=== PATIENT | male | born 1965 | race Caucasian/White ===

== ENCOUNTER 2016-12-20 13:49 | Inpatient (IN) | payer MEDICAID ==
[2016-12-20] VITALS (8 sets, daily range): BP systolic 100–156; BP diastolic 50–97
[~2016-12-20] VITALS: Ht 175.3 cm; Wt 88.3 kg
[~2016-12-20 13:49] MED LIST: AMBIEN5 MG PO; CYMBALTA30 M1 PO; DILAUDID2 MG PO; GEODON20 MG PO; TORADOL10 MG PO; [UNRECOGNIZED DRUG - OTHER] PO
[2016-12-20 14:36] LABS: BASOPHIL % 0.6 % (0-2); PLATELET COUNT 289 x10^3mcL (130-400); RED CELL DISTRIBUTION WIDTH 13.4 % (11.5-14.5)
[2016-12-20 14:41] LABS: CALCIUM 9.2 mg/dL (8.5-10.1); CARBON DIOXIDE 26.1 mmol/L (21-32); CHLORIDE SERUM 104 mmol/L (98-107); GFR1 > 60 mL/min; GLUCOSE SERUM 117 mg/dL (74-106); POTASSIUM SERUM 4.1 mmol/L (3.5-5.1); SODIUM SERUM 140 mmol/L (136-145)
[2016-12-20 14:46] LABS: ALKALINE PHOSPHATASE 56 U/L (46-116); ALT/SGPT 46 U/L (16-63); AST/SGOT 17 U/L (15-37); BILIRUBIN TOTAL 0.26 mg/dL (0.20-1.00); TOTAL PROTEIN, SERUM 7.8 g/dL (6.4-8.2)
[2016-12-20 15:09] LABS: UA SPECIFIC GRAVITY <=1.005 (1.005-1.035); microscopic required? YES; urine erythrocyte TRACE (NEGATIVE)
[2016-12-20 15:19] LABS: AMPHETAMINE QUAL UR NONE DETECTED (NEG <=1000)
[2016-12-20 15:44] LABS: PHOSPHOROUS 3.5 mg/dL (2.5-4.9)
[2016-12-20 15:45] LABS: CHOLESTEROL/HDL RATIO 4.8
[2016-12-20 15:48] LABS: T3 TOTAL 0.99 ng/mL
[2016-12-20 15:56] LABS: FREE T4 1.01 ng/dL (0.76-1.46)
[2016-12-20] MEDS ORDERED: ALPRAZOLAM1 MG PO (16:01)
[2016-12-20] MEDS ORDERED: STRIBILD1 TAB PO (16:01)
[2016-12-20] MEDS ORDERED: DILAUDID2 MG PO (16:02)
[2016-12-20] MEDS ORDERED: CYCLOBENZAPRINE10 MG PO (16:02)
[2016-12-20] MEDS ORDERED: AMBIEN10 MG PO (16:03)
[2016-12-20] MEDS ORDERED: LEVOTHYROXINE0.2 M2 PO (16:03)
[2016-12-20] MEDS ORDERED: MIRTAZAPINE30 M2 PO (16:09)
[2016-12-21] VITALS (14 sets, daily range): BP systolic 99–128; BP diastolic 59–81
[2016-12-21 05:27] LABS: BASOPHIL % 0.5 % (0-2); PLATELET COUNT 237 x10^3mcL (130-400); RED CELL DISTRIBUTION WIDTH 13.1 % (11.5-14.5)
[2016-12-21 05:47] LABS: CALCIUM 8.7 mg/dL (8.5-10.1); CARBON DIOXIDE 25.7 mmol/L (21-32); CHLORIDE SERUM 107 mmol/L (98-107); GFR1 > 60 mL/min; GLUCOSE SERUM 105 mg/dL (74-106); MAGNESIUM 1.8 mg/dL (1.8-2.4); PHOSPHOROUS 3.7 mg/dL (2.5-4.9); POTASSIUM SERUM 3.7 mmol/L (3.5-5.1); SODIUM SERUM 143 mmol/L (136-145)
[2016-12-22 03:44] VITALS: BP 111/66
[2016-12-22 05:39] LABS: BASOPHIL % 0.6 % (0-2); PLATELET COUNT 207 x10^3mcL (130-400); RED CELL DISTRIBUTION WIDTH 13.1 % (11.5-14.5)
[2016-12-22 05:46] LABS: CALCIUM 7.8 mg/dL (8.5-10.1); CARBON DIOXIDE 26.4 mmol/L (21-32); CHLORIDE SERUM 109 mmol/L (98-107); CREATININE SERUM 0.8 mg/dL (0.7-1.3); GFR1 > 60 mL/min; GLUCOSE SERUM 102 mg/dL (74-106); MAGNESIUM 1.8 mg/dL (1.8-2.4); POTASSIUM SERUM 3.2 mmol/L (3.5-5.1); SODIUM SERUM 146 mmol/L (136-145)
[2016-12-22 07:57] VITALS: BP 142/91
[2016-12-22 08:08] VITALS: Ht 175.3 cm; Wt 88.3 kg
[2016-12-22 11:15] VITALS: BP 127/78
[2016-12-22 14:00] VITALS: BP 111/71
[2016-12-22 17:32] VITALS: BP 131/77
[2016-12-22 20:31] VITALS: BP 117/66
[2016-12-23 06:20] VITALS: BP 129/78
[2016-12-23 06:26] LABS: BASOPHIL % 0.6 % (0-2); PLATELET COUNT 209 x10^3mcL (130-400); RED CELL DISTRIBUTION WIDTH 13.3 % (11.5-14.5)
[2016-12-23 06:36] LABS: CALCIUM 8.8 mg/dL (8.5-10.1); CARBON DIOXIDE 28.2 mmol/L (21-32); CHLORIDE SERUM 108 mmol/L (98-107); CREATININE SERUM 0.9 mg/dL (0.7-1.3); GFR1 > 60 mL/min; GLUCOSE SERUM 116 mg/dL (74-106); MAGNESIUM 1.9 mg/dL (1.8-2.4); POTASSIUM SERUM 3.7 mmol/L (3.5-5.1); SODIUM SERUM 143 mmol/L (136-145)
[2016-12-23 09:31] VITALS: BP 145/81
[2016-12-23 10:11] VITALS: BP 145/81
[2016-12-23] MEDS ORDERED: LAC PO (11:15)
[2016-12-23] MEDS ORDERED: AUG500 PO (11:15)
[2016-12-23 12:59] VITALS: BP 128/88
== END 2016-12-23 13:30 | disposition home or self-care (01) | DRG 137 ==
LOC: ED 13:49 → IC 14:37 → DU 12-22 13:24
PROVIDERS: Emergency Medicine; ADMIT Family Medicine
PROC: 5A1935Z Respiratory Ventilation, Less than 24 Consecutive Hours (ICD-10-PCS; principal; 2016-12-20)
PROC: 0BH17EZ Insertion of Endotracheal Airway into Trachea, Via Natural or Artificial Opening (ICD-10-PCS; 2016-12-20)
PROC: 05HM33Z Insertion of Infusion Device into Right Internal Jugular Vein, Percutaneous Approach (ICD-10-PCS; 2016-12-21)
PROC: B543ZZA Ultrasonography of Right Jugular Veins, Guidance (ICD-10-PCS; 2016-12-21)
DX: J69.0 Pneumonitis due to inhalation of food and vomit (principal); J96.00 Acute respiratory failure, unspecified whether with hypoxia or hypercapnia; G92 Toxic encephalopathy; B20 Human immunodeficiency virus [HIV] disease; F33.2 Major depressive disorder, recurrent severe without psychotic features; T42.4X2A Poisoning by benzodiazepines, intentional self-harm, initial encounter; F41.1 Generalized anxiety disorder; I10 Essential (primary) hypertension; E03.9 Hypothyroidism, unspecified; G89.29 Other chronic pain; M54.9 Dorsalgia, unspecified; E78.5 Hyperlipidemia, unspecified; G47.00 Insomnia, unspecified; T40.2X2A Poisoning by other opioids, intentional self-harm, initial encounter; Y92.018 Other place in single-family (private) house as the place of occurrence of the external cause; Z68.28 Body mass index [BMI] 28.0-28.9, adult
CPT/HCPCS: 36556; 36600; 83880; 84439; 97110-GP; 97116-GP; 97530-GP; C9113; G0480; J0330; J1642; J1644; J2060; J2310; J2543; J2704; J3480; J3490; J7030; J7620; Q0092